=== PATIENT | female | born 2000 | race African-American/Black ===

== ENCOUNTER 2021-01-04 00:04 | Inpatient (IN) ==
[2021-01-04] MEDS ORDERED: MEPERIDINE 50 MG/1 ML VIAL IV PRN (00:19)
[2021-01-04] MEDS ORDERED: BUTORPHANOL 2 MG/ML VIAL IV PRN (00:19)
[2021-01-04] MEDS ORDERED: ONDANSETRON 4 MG/2 ML VIAL IV PRN ×2 (00:19→15:58)
[2021-01-04 00:47] LABS: Basophils % 0.1 % (0.0-0.8); Eosinophils % 0.6 % (0.00-10.9); Hematocrit 34.3 VOL% (35.7-47.0); Hemoglobin 10.9 GM/DL (12.0-16.0); Immature Granulocytes % 0.6 %; Immature Granulocytes Absolute 0.04 #; Lymphocytes # 1.2 10*3/uL (1.4-4.0); Lymphocytes % 17.1 % (21.3-54.2); Mean Corpuscular HGB Conc 31.8 GM/DL (32-36); Mean Corpuscular Volume 83.3 FL (87-102); Mean Platelet Volume 11.4 FL (9.6-12.0); Monocytes % 7.4 % (1.7-12.7); Neutrophils % 74.2 % (38.7-73.9); Platelet Count 217 T/CUMM (130-400); Red Blood Count 4.12 MC/CUMM (3.8-5.5); Red Cell Distribution Width 15.5 % (9.3-17.3); White Blood Count 6.7 T/CUMM (4-12)
[2021-01-04] MEDS ORDERED: LABETALOL 100 MG/20 ML VIAL IV ONE ×2 (01:14→01:20)
[2021-01-04 01:24] LABS: Alanine Aminotransferase 13 U/L (13-56); Albumin 3.1 G/DL (3.4-5.0); Alkaline Phosphatase 102 U/L (45-117); Aspartate Amino Transferase 20 U/L (0-37); Bilirubin,Total < 0.39 MG/DL (0.2-1.0); Blood Urea Nitrogen 5 MG/DL (7-18); Calcium 8.8 MG/DL (8.5-10.1); Carbon Dioxide 20 MMOL/L (21-32); Estimated Glom Filtration Rate 171 ML/MIN; Glucose 116 MG/DL (74-106); Potassium 3.2 MMOL/L (3.5-5.1); Sodium 136 MMOL/L (136-145); Total Protein 7.5 G/DL (6.4-8.2)
[2021-01-04 01:45] LABS: Bilirubin,Direct 0.1 MG/DL (0.0-0.20); Uric Acid 4.7 MG/DL (2.6-6.0)
[2021-01-04 01:54] LABS: INR 0.9; PT Patient Result 10.3 SECS (10.5-12.0)
[2021-01-04 02:29] LABS: Bilirubin,Urine Negative (Negative); Blood, Urine Negative (Negative); Glucose,Urine (UA) Negative (Negative); Ketones,Urine Negative (Negative); Nitrite,Urine Negative (Negative); Protein,Urine Negative; RBC,Urine 1 /HPF (0-4); Squamous Epithelial Cell,Urine Occasional /HPF (0-10); Urine Appearance CLEAR (Clear); Urine Color Yellow (Yellow); Urine Specific Gravity 1.006 (1.001-1.035); Urine Urobilinogen < 2.0 EU/DL (0.2-1.0)
[2021-01-04 03:04] LABS: Protein/Creatinine Ratio,Urine 0.2 RATIO
[2021-01-04] MEDS ORDERED: DEXTROSE 5% LACTATED RINGERS 250 ML IV ONE (03:27)
[2021-01-04] MEDS ORDERED: LABETALOL 100 MG TABLET PO SCH (03:30)
[2021-01-04] MEDS ORDERED: ACETAMINOPHEN 500 MG TABLET PO ONE (05:00)
[2021-01-04] MEDS: LACTATED RINGERS 1,000 ML IV SCH ×2 (06:39→08:29)
[2021-01-04] MEDS ORDERED: PROMETHAZINE 25 MG/1 ML VIAL IM ONE (07:25)
[2021-01-04] MEDS ORDERED: CITRIC ACID/SODIUM CITRATE 30 ML UDCUP PO ONE (07:25)
[2021-01-04] MEDS ORDERED: FAMOTIDINE 20 MG/2 ML VIAL IV ONE (07:25)
[2021-01-04] MEDS ORDERED: hydrOXYzine HCL 25 MG/1 ML VIAL IM PRN (07:25)
[2021-01-04] MEDS ORDERED: diphenhydrAMINE 50 MG/1 ML VIAL IV PRN ×2 (07:25)
[2021-01-04] MEDS ORDERED: ePHEDrine 50 MG/ML VIAL IV PRN (07:25)
[2021-01-04] MEDS ORDERED: ONDANSETRON 4 MG/2 ML VIAL IV ONE (07:25)
[2021-01-04] MEDS ORDERED: OXYTOCIN/LR 30 UNIT/1,000 ML BAG IV ONE (07:31)
[2021-01-04] MEDS ORDERED: OXYTOCIN 10 UNIT/ML VIAL IM ONE (07:31)
[2021-01-04] MEDS ORDERED: OXYTOCIN/LR 20 UNIT/1,000 ML BAG IV SCH (09:30)
[2021-01-04] MEDS ORDERED: fentaNYL 2 MCG/ROPIV 0.2% EPID 100 ML EPIDURAL SCH (11:30)
[2021-01-04] MEDS ORDERED: TERBUTALINE 1 MG/1 ML VIAL ONE (14:12)
[2021-01-04] MEDS ORDERED: TERBUTALINE 1 MG/1 ML VIAL SUBCUT ONE (14:15)
[2021-01-04] MEDS ORDERED: AMPICILLIN INJ 2,000 MG in SODIUM CHLORIDE 0.9% 100 ML IV ONE (14:21)
[2021-01-04] MEDS ORDERED: ceFAZolin 2,000 MG/50 ML DUPLEX IV ONE ×2 (14:48→14:54)
[2021-01-04] MEDS ORDERED: OXYTOCIN 10 UNIT/ML VIAL ONE (14:51)
[2021-01-04] MEDS ORDERED: miSOPROStoL 200 MCG TABLET ONE (14:52)
[2021-01-04] MEDS ORDERED: METHYLERGONOVINE 0.2 MG/1 ML AMP ONE (14:52)
[2021-01-04] MEDS ORDERED: TRANEXAMIC ACID 1,000 MG/10 ML VIAL ONE (14:52)
[2021-01-04] MEDS ORDERED: CARBOPROST TROMETHAMINE 250 MCG/ML AMP IM ONE (14:52)
[2021-01-04] MEDS ORDERED: LIDOCAINE MPF 2% /EPI 20 ML VIAL ONE (14:55)
[2021-01-04] MEDS ORDERED: ONDANSETRON 4 MG/2 ML VIAL ONE (15:14)
[2021-01-04] MEDS ORDERED: LABETALOL 20 MG/4 ML SYRINGE IV ONE (15:27)
[2021-01-04] MEDS ORDERED: METOPROLOL TARTRATE 5 MG/5 ML VIAL IV ONE (15:30)
[2021-01-04 15:48] LABS: Cord Venous Blood HCO3 22.7 MMOL/L; Cord Venous Blood PCO2 46.9 MMHG; Cord Venous Blood PO2 < 19.0 MMHG
[2021-01-04] MEDS ORDERED: IBUPROFEN 800 MG TABLET PO PRN (15:58)
[2021-01-04] MEDS ORDERED: OXYTOCIN/LR 20 UNIT/1,000 ML BAG IV ONE (15:58)
[2021-01-04] MEDS ORDERED: RHO(D) IMMUNE GLOBULIN 300 MCG SYRINGE IM ONE (15:58)
[2021-01-04] MEDS ORDERED: ACETAMINOPHEN 325 MG TABLET PO PRN (15:58)
[2021-01-04] MEDS ORDERED: MAGNESIUM HYDROXIDE SUSP 30 ML UDCUP PO PRN (15:58)
[2021-01-04] MEDS ORDERED: LACTATED RINGERS 1,000 ML IV SCH (16:00)
[2021-01-04] MEDS: KETOROLAC 30 MG/1 ML VIAL IV SCH (17:52)
[2021-01-04] MEDS: ACETAMINOPHEN 500 MG TABLET PO SCH ×2 (17:53→23:59)
[2021-01-04] MEDS: POTASSIUM CHLORIDE RIDER 10 MEQ/100 ML PREMIX IV PRN (20:40)
[2021-01-04] MEDS: DOCUSATE SODIUM 100 MG CAPSULE PO SCH (20:42)
[2021-01-04 23:30] LABS: Basophils % 0.2 % (0.0-0.8); Hematocrit 28.9 VOL% (35.7-47.0); Hemoglobin 9.3 GM/DL (12.0-16.0); Immature Granulocytes % 0.8 %; Immature Granulocytes Absolute 0.05 #; Lymphocytes # 1.1 10*3/uL (1.4-4.0); Lymphocytes % 17.1 % (21.3-54.2); Mean Corpuscular HGB Conc 32.2 GM/DL (32-36); Mean Platelet Volume 11.3 FL (9.6-12.0); Neutrophils % 75.9 % (38.7-73.9); Platelet Count 175 T/CUMM (130-400); Red Blood Count 3.44 MC/CUMM (3.8-5.5); Red Cell Distribution Width 15.7 % (9.3-17.3); White Blood Count 6.3 T/CUMM (4-12)
[2021-01-05] MEDS: POTASSIUM CHLORIDE RIDER 10 MEQ/100 ML PREMIX IV PRN (00:08)
[2021-01-05 00:12] LABS: Platelet Estimate Adequate
[2021-01-05] MEDS: POTASSIUM CHLORIDE RIDER 10 MEQ/100 ML PREMIX IV SCH ×2 (01:10→02:04)
[2021-01-05 05:33] LABS: Basophils % 0.2 % (0.0-0.8); Eosinophils % 0.2 % (0.00-10.9); Hematocrit 30.3 VOL% (35.7-47.0); Hemoglobin 9.5 GM/DL (12.0-16.0); Immature Granulocytes % 0.6 %; Immature Granulocytes Absolute 0.03 #; Lymphocytes # 1.2 10*3/uL (1.4-4.0); Lymphocytes % 23.8 % (21.3-54.2); Mean Corpuscular HGB Conc 31.4 GM/DL (32-36); Mean Corpuscular Volume 84.9 FL (87-102); Mean Platelet Volume 11.9 FL (9.6-12.0); Monocytes % 6.1 % (1.7-12.7); Neutrophils % 69.1 % (38.7-73.9); Platelet Count 172 T/CUMM (130-400); Red Blood Count 3.57 MC/CUMM (3.8-5.5); Red Cell Distribution Width 15.7 % (9.3-17.3); White Blood Count 5.1 T/CUMM (4-12)
[2021-01-05] MEDS: KETOROLAC 30 MG/1 ML VIAL IV SCH ×3 (05:52→10:30)
[2021-01-05] MEDS: ACETAMINOPHEN 500 MG TABLET PO SCH (05:52)
[2021-01-05 05:56] LABS: Hypochromasia 1+; Microcytosis 1+; Platelet Estimate Adequate
[2021-01-05] MEDS: METOCLOPRAMIDE 10 MG TABLET PO SCH ×3 (10:29→23:40)
[2021-01-05] MEDS: SIMETHICONE CHEW 80 MG TABLET PO PRN (10:30)
[2021-01-05] MEDS: DOCUSATE SODIUM 100 MG CAPSULE PO SCH ×2 (10:30→20:45)
[2021-01-05] MEDS: MULTIVITAMIN (PRENATAL) TABLET PO SCH (10:30)
[2021-01-05] MEDS: FERROUS SULFATE 325 MG TABLET PO SCH ×2 (10:30→20:45)
[2021-01-06 09:26] VITALS: BP 144/78
[2021-01-06] MEDS: MULTIVITAMIN (PRENATAL) TABLET PO SCH (09:46)
[2021-01-06] MEDS: METOCLOPRAMIDE 10 MG TABLET PO SCH (09:46)
[2021-01-06] MEDS: FERROUS SULFATE 325 MG TABLET PO SCH (09:46)
[2021-01-06] MEDS: SIMETHICONE CHEW 80 MG TABLET PO PRN (09:46)
[2021-01-06] MEDS: DOCUSATE SODIUM 100 MG CAPSULE PO SCH (09:46)
== END 2021-01-06 11:30 | disposition home or self-care (01) | DRG 540 ==
LOC: N.LD 00:04 → N.OB 18:17
PROVIDERS: ADMIT Obstetrics & Gynecology; ATTEND Obstetrics & Gynecology
PROC: LDCSECT (ICD-10-PCS; 2021-01-04 14:50)